=== PATIENT | male | born 1985 | race American Indian/Alaskan Native ===

== ENCOUNTER 2017-09-17 07:20 | Emergency (ER) | payer SELFPAY ==
--- NOTE | 2017-09-17 07:51 | Emergency Department Report ---
Vomiting/Diarrhea - HPI Chief Complaint: Nausea/Vomiting/Diarrhea Stated Complaint: VOMITNG Time Seen by Provider: 09/17/17 07:39 Duration: 4 Days Severity: moderate Nausea/Vomiting Severity: Moderate Diarrhea Severity: None Pain Location: Generalized Pain Severity: Mild Symptoms: No Watery Diarrhea, No Bloody diarrhea, No Fever, No Able to Tolerate Fluids, No Recent Unusual Foods, No Recent Untreated Water, No Recent use of Antibiotics, No Family w/ Similar Symptoms, No Contacts w/ Similar Symptoms, No Rash, No Hematuria, No Recent URI Symptoms Other History: Specific 2-year-old -Arm[place]ian male presents with nausea and vomiting since Wednesday while out of town for work. Patient reports eating a fast food the entire time he was out out of town and that is unusual for him. He has been having an abdominal cramping and nausea and vomiting ever since he left. Patient reports heartburn and abdominal cramping since eating fast food on Wednesday. When he returned home last night the nausea and vomiting increased. Last bowel movement 4 days ago. He has not tried taking anything over-the- counter. Reports after taken a few bites of food it comes right back up and he is unable to tolerate liquids. States he felt like something is inside of his stomach and he is just uncomfortable. Denies diarrhea, fever, shortness of breath, tarry stools, and hematochezia. ED Review of Systems ROS: Stated complaint: VOMITNG Other details as noted in HPI Constitutional: denies: chills, fever Respiratory: denies: cough, shortness of breath, wheezing Cardiovascular: denies: chest pain, palpitations, syncope Gastrointestinal: abdominal pain (generalized cramping), nausea, vomiting. denies: diarrhea, constipation, hematemesis, melena, hematochezia Genitourinary: denies: urgency, dysuria, frequency Neurological: denies: headache, weakness, paresthesias Psychiatric: denies: anxiety, depression ED Past Medical Hx - Past Medical History Previous Medical History?: No - Surgical History Past Surgical History?: No - Social History Smoking Status: Current Every Day Smoker - Medications Home Medications: Home Medications Medication Instructions Recorded Confirmed Last Taken Type Ondansetron [Zofran Odt] 4 mg PO TID PRN #15 tab.rapdis 09/17/17 Unknown Rx Vomiting Diarrhea Exam - Exam General: Vital signs noted. No distress. Alert and acting appropriately. HEENT: Yes Pharyngeal Exudates, Yes Moist Mucous Membranes, Yes Rhinorrhea ( turbinates mildly congested with clear discharge), No Pharyngeal Erythema, No Conjuctival Injection, No Frontal Tenderness, No Maxillary Tenderness Neck: No Adenopathy, No Rigidity Lungs: Yes Clear Lung Sounds, Yes Good Air Exchange, No Wheezes, No Stridor, No Cough, No Nasal Flaring, No Retractions, No Use of Accessory Muscles Heart exam: Regular: Yes, Murmur: No, Tachycardia: No Abdomen: Tenderness: Yes (left lower quadrant), Peritoneal Signs: No, Distention : No, Hyperactive Bowel sounds: No Skin exam: Rash: No, Edema: No, Normal turgor: Yes Neurologic: Alert and oriented, no deficits. Musculoskeletal: Unremarkable. ED Course Vital Signs 09/17/17 07:26 Temperature 98.1 F Pulse Rate 98 H Respiratory 16 Rate Blood Pressure 143/104 O2 Sat by Pulse 99 Oximetry ED Medical Decision Making - Lab Data Result diagrams: 09/17/17 08:03 09/17/17 08:03 - Radiology Data Radiology results: report reviewed CT ABDOMEN PELVIS WITH CONTRAST: HISTORY: Left lower quadrant tenderness. COMPARISON: none. TECHNIQUE: Helical CT in 1.25mm intervals following IV contrast. Sagittal and coronal reconstructions. FINDINGS: Lung bases: Normal. Liver: Normal. Biliary system: Normal. Pancreas: Normal. Spleen: Normal. Kidneys/ureters/bladder: Normal. Adrenal glands: Normal. Aorta: Normal. Intestines: Normal. Appendix: Normal. Pelvic viscera: Normal. Ascites: None. Adenopathy: None. Musculoskeletal: Normal. IMPRESSION: Unremarkable CT scan of the abdomen and pelvis with contrast. - Medical Decision Making 32 y.o. -Armenian male that presents with generalized abdominal pain, nausea and vomiting for 4 days. Patient examined by me, slightly distressed. Blood pressure slightly elevated without hypertension diagnosis. Given normal saline IV 1L bolus and Zofran 4 mg ODT by mouth once in the ER. Obtained CBC, CMP, lipase, urinalysis, and CT of abdomen and pelvis. Unremarkable CT scan of the abdomen and pelvis with contrast. Signs of dehydration from labs. Physical findings susceptible of gastroenteritis with dehydration. Start Zofran ODT 4 mg po tid prn #15. Increase fluid intake for rehydration. Discharged home. Follow up with [facility] in 48-72 hours. Critical care attestation.: If time is entered above; I have spent that time in minutes in the direct care of this critically ill patient, excluding procedure time. ED Disposition Clinical Impression: Gastroenteritis, Dehydration Disposition: DC- TO HOME OR SELFCARE Is pt being admited?: No Does the pt Need Aspirin: No Condition: Stable Instructions: Dehydration (ED), Gastroenteritis (ED), Acute Nausea and Vomiting (ED) Additional Instructions: Increase fluid intake to 2 L per day. Follow-up primary care provider in 2-3 days. Return to ER if unable to hold down liquids, solid food, and fever. Prescriptions: Ondansetron [Zofran Odt] 4 mg PO TID PRN #15 tab.rapdis PRN Reason: Nausea And Vomiting Referrals: [facility] [Outside] - 3-[address] [facility] [Outside] - 3-5 Days [facility] [Outside] - 3-5 Days Forms: Work/School Release Form(ED) Time of Disposition: 09:08 Print Language: BELGIAN
[2017-09-17] MEDS ORDERED: NACL 0.9% 1000 ML 1,000 ML IV ONE (07:54)
[2017-09-17] MEDS ORDERED: ZOFRAN ODT PO ONE (07:54)
[2017-09-17 08:16] LABS: Hematocrit 53.1 % (35.5-45.6); Hemoglobin 18.3 gm/dl (11.8-15.2); Mean Corpuscular HGB Conc 35 % (32-34); Mean Corpuscular Hemoglobin 33 pg (28-32); Mean Corpuscular Volume 94 fl (84-94); Platelet Count 352 K/mm3 (140-440); Red Blood Count 5.64 M/mm3 (3.65-5.03); Red Cell Distribution Width 13.1 % (13.2-15.2)
[2017-09-17 08:20] LABS: Bilirubin,Urine NEG (Negative); Blood,Urine NEG (Negative); Color,Urine Amber (Yellow); Hyaline Casts,Urine 1 /LPF; Mucus,Urine 1+ /HPF; Urobilinogen,Urine < 2.0 mg/dL (<2.0)
[2017-09-17 08:30] LABS: Alanine Aminotransferase 27 units/L (7-56); Albumin 4.7 g/dL (3.9-5); BUN/Creatinine Ratio 17; Blood Urea Nitrogen 20 mg/dL (9-20); Calcium 9.4 mg/dL (8.4-10.2); Hemolysis Index 32; Lipase 17 units/L (13-60)
--- NOTE | 2017-09-17 09:05 | Cat Scan Report ---
CT ABDOMEN PELVIS WITH CONTRAST: HISTORY: Left lower quadrant tenderness. COMPARISON: none. TECHNIQUE: Helical CT in 1.25mm intervals following IV contrast. Sagittal and coronal reconstructions. FINDINGS: Lung bases: Normal. Liver: Normal. Biliary system: Normal. Pancreas: Normal. Spleen: Normal. Kidneys/ureters/bladder: Normal. Adrenal glands: Normal. Aorta: Normal. Intestines: Normal. Appendix: Normal. Pelvic viscera: Normal. Ascites: None. Adenopathy: None. Musculoskeletal: Normal. IMPRESSION: Unremarkable CT scan of the abdomen and pelvis with contrast.
[2017-09-17 09:21] VITALS: BP 145/97
== END 2017-09-17 09:42 | disposition home or self-care (01) ==
LOC: ED 07:20
DX: K52.9 Noninfective gastroenteritis and colitis, unspecified (principal); E86.0 Dehydration; F17.200 Nicotine dependence, unspecified, uncomplicated
CPT/HCPCS: 36415; 74177; 80053; 81001; 83690; 85027; 96360; 99284; J7030; Q9967; Q0162